=== PATIENT | female | born 1970 | race Caucasian/White ===

== ENCOUNTER 2023-09-22 15:15 | Outpatient (RCR) | payer BC, MEDICARE, SELFPAY ==
--- NOTE | 2023-09-08 17:12 | PT.OIE ---
Addendum entered and electronically signed by Esther Jaramillo, PT 09/09/23 17:29: PT direct supervision and direction to PT student. Original Note: Current Diagnoses Pain in right wrist (09/08/23) Past Medical History (Last Updated 09/07/23 @ 21:28 by Heather Johnson) Anxiety (~2016) Carpal tunnel syndrome Chicken pox Chronic back pain Depression (~2016) Fibromyalgia (~2009) Irritable bowel syndrome (~2019) Osteoarthritis (~1985) PTSD (post-traumatic stress disorder) (~2016) Rosacea (~2017) Shoulder pain (~2017) Past Surgical History (Last Updated 09/07/23 @ 21:28 by Heather Johnson) Anesthesia History of bilateral knee replacement History of hysterectomy (~2015) History of knee surgery Surgical procedure planned Visit Care Team Role Provider Type SHERRIE Baldwin Referring Provider Advanced Buffet Waiter/Waitress Specialty: Family Practice Address: [address] [place] [address], [id number] Phone: Fax: Email: [email or web address] Miranda Marques MD Attending Provider Physician Family Provider Primary Care Provider Specialty: Family Practice Obstetrics Address: [address] [place] [address], [id number] Email: [email or web address] Physical Therapy Initial Evaluation PT-OP-A Visit Information Start: 09/03/23 09:21 Freq: Status: Active Protocol: Document 09/08/23 08:23 BS (Rec: 09/08/23 12:15 BS [id number]) Out-Patient Physical Therapy Visit Information Visit Information Visit Type Initial Evaluation Visit Note 11/04 Visit Start Time 08:20 Visit Stop Time 09:08 Total Visit Minutes 48 Visit Number 1 Number of AUTOMATIC DOOR MECHANIC Visits 0 PT-OP-B Current Condition Start: 09/03/23 09:21 Freq: Status: Active Protocol: Document 09/08/23 08:23 BS (Rec: 09/08/23 12:15 BS [id number]) Current Condition History of Current Condition History of Current Condition Pt had a fall in 2018 d/t R knee locking up and she fell on knees and arms and neck went down in whiplash motion but didn't hit head on ground. Neck began hurting after, lots of pain and numbness but didn't do much for it. Did get xrays and said they found bone spurs. Can't remember if she had MRI or CT done. Recently woke up in middle of the night with RUE feeling like it had been cut off, had to get up and walk around and move neck. Had thumb spika on at the time. She has found that she has to sleep on her back bc if she sleep on sides UEs go numb. Maybe can get 45min-1.5 hour sleep in before waking up d/t sx and having to adjust. OKBE has numbness that goes to elbow and if sits for too long whole RUE will go numb. Tends to move around a lot bc if sitting for too long everything stiffens up. Pt has been to acupuncture and seems to help, responds well to estim. Sx described as N&T, burning, stabbing, in usually digits 3-5 that she can feel zing from neck but when it goes totally numb just to elbow. Has to adjust everything she does in work and day to day life d/t injury . Does have muscle relaxors but doesnt feel like they help , still wakes up as often and just wakes up more groggy. Only takes them at night. Denies any dizziness or lightheadedness. Occassionally gets headache when she feels a snap or crunch in upper cervical region. Has 2-3 falls per year d/t knees, RLE was unsuccessful bc it does not bend. Pt has B knee replacements d/t OA and repetitive hyperextension. Has newer changes in fingers of bigger joints and knuckles swelling up but when she went to see a quality control engineer was given diagnosis of fibromyalgia. Joints tend to swell depending on diet as well, carlos w/ gluten. Prior Treatments and Tests Xray after fall that showed bone spurs. Treatment Goals Patient/Caregiver Goals Wants arms to not go numb anymore. Get sleep under control. PT-OP-C Subjective Start: 09/03/23 09:21 Freq: Status: Active Protocol: Document 09/08/23 08:23 BS (Rec: 09/08/23 12:15 BS [id number]) OP-PT Pain Assessment Location B UE Intensity 8 Scale Used Numeric (0 - 10) Description Burning,Radiating,Shooting, Tightness,Tingling Frequency Constant Pain Aggravating Factors Position,ADL's,Activity, Exercise,Sitting Pain Alleviating Factors Cold,Heat,Position PT-OP-F Manual Assessment Start: 09/03/23 09:21 Freq: Status: Active Protocol: Document 09/08/23 08:23 BS (Rec: 09/08/23 12:16 BS [id number]) Manual Assessments Soft Tissue Assessment Soft Tissue Mobility Assessment significant tone noted in cerivcal paraspinals, Upper traps, & periscapular mm PT-OP-J Posture/Palpation/Skin Start: 09/03/23 09:21 Freq: Status: Active Protocol: Document 09/08/23 08:23 BS (Rec: 09/08/23 12:15 BS [id number]) Posture Evaluation Comments Posture Comments Sitting posture: R shoulder complex lower than L, kyphosis of upper thoracic spine, fwd head posture PT-OP-K Range of Motion Start: 09/03/23 09:21 Freq: Status: Active Protocol: Document 09/08/23 08:23 BS (Rec: 09/08/23 12:15 BS [id number]) Cervical Spine Range of Motion Cervical Spine Active Degrees Testing Position Sitting Flexion 42 Extension 48 Rotation Left 41 Rotation Right 34 Lateral Flexion Left 27 Lateral Flexion Right 12 Comments w/ R SB R hand goes numb, SB to L feels stretch on R but no neural sx PT-OP-L Special Tests Start: 09/03/23 09:21 Freq: Status: Active Protocol: Document 09/08/23 08:23 BS (Rec: 09/08/23 12:15 BS [id number]) Special Tests Cervical Spine Special Tests Alar ligament Stress test Test Results inconclusive Comments Tested in sitting & muscle tone of paraspinals interfered with assessment Modified Sharp-Amarilys Test Test Results inconclusive Comments Pt had hot flash symptoms come on immediately when test performed Spurlings Test Results positive Comments pain w/ ext, traction relieved PT-OP-M Strength Start: 09/03/23 09:21 Freq: Status: Active Protocol: Document 09/08/23 08:23 BS (Rec: 09/08/23 12:15 BS [id number]) Shoulder Strength Shoulder Manual Muscle Testing Right Abduction (C5) 3+ Fair+ Comments Neural sx w/ abd - limited by pain & sx Left Abduction (C5) 4+ Good+ Elbow/Forearm Strength Elbow and Forearm Manual Muscle Testing Right Flexion (C6) 4+ Good+ Extension (C7) 3+ Fair+ Comments pain & neural sx w/ elbow ext Left Flexion (C6) 4+ Good+ Extension (C7) 4+ Good+ Finger/Thumb Strength Finger Manual Muscle Testing Right Thumb Flexion (fingers C8) 5 Normal Extension (thumb C8) 4+ Good+ Adduction 4+ Good+ Abduction (fingers T1) 4+ Good+ Comments R 3rd & 4th fingers went numb w/ abduction Left Thumb Flexion (fingers C8) 5 Normal Extension (thumb C8) 4 Good Adduction 4+ Good+ Abduction (fingers T1) 4+ Good+ PT-OP-T Assessment and Plan Start: 09/03/23 09:21 Freq: Status: Active Protocol: Document 09/08/23 08:23 BS (Rec: 09/08/23 12:15 BS [id number]) Physical Therapy Assessment Rehab Potential Rehabilitation Potential Good Evaluation Complexity Number of Personal Factors/Comorbidities 3 or More Number of Body Systems Impaired 4 or More Clinical Presentation at Evaluation Unstable Impairments Impairments Activity Tolerance,Functional Activities,Functional Mobility ,Gait,Pain,Posture,ROM, Sensation,Soft Tissue Mobility ,Strength,Tone Goals Symptoms Impairment Constant numbness throughout day that comes on after just few minutes of one position Short Term Goal (STG) Pt will report dec in numbness of BUE throughout daily activities, with no more than 5/10 pain reported at worst. STG Duration 10/13/23 Kiln Drawer Goal (LTG) Pt will report no more numbness in BUE with ADLs such as getting dressed, doing hair, and cleaning in order to allow for proper participation in necessary daily tasks without limitation d/t symptoms & pain. LTG Duration 11/17/23 Sleep Impairment Pt wakes up every 45min d/t numbness and tingling through BUE every night which she has to get up or move around to get it to dec before faling back asleep. Short Term Goal (STG) Pt will report bouts of sleep >2hr throughout night in order to show dec in symtom severity & frequency throughout night. STG Duration 10/13/23 Penitentiary Goal (LTG) Pt will report no sleep distruptions during night d/t BUE symptoms in order to allow for better quality sleep & to show improvement in overall symptom frequency and severity . LTG Duration 11/17/23 ROM Impairment significant limitation in all cervical ROM Short Term Goal (STG) Pt will inc B cervical rotation to > 45 degrees w/o inc in symptoms in order to progress towards functional ROM w/o pain or N&T. STG Duration 10/13/23 Kiln Drawer Goal (LTG) Pt will inc cervical ROM w/o inc in pain or numbness throughout neck and BUE in order to allow for functional mobility during ADLs and work without limitation d/t symptoms. LTG Duration 11/17/23 Assessment Summary Assessment Pt reports to PT eval today c/ o neck pain & BUE numbness & tingling following a fall in 2018. Pt feel numbness and tingling from neck, through medial arm and into digits 3-5 . Pt had xrays taken after fall and found bone spurs in cervical spine but no other significant findings, pt does not remember if she has had MRI or CT done. Pt denied any dizziness/lightheadedness but states she has about 3 falls a year which she states is d/t her R knee locking out. She has B knee replacements but the R knee never healed properly and has flexion ROM deficits following significant PTSD from surgery. Pt has also been told she may need a hip replacement and was given diagnosis of fibromyalgia by rhematologist following appointment to discuss joint pain throughout body. During exam, pt was noted to have significantly dec cervical ROM , with her R hand going numb during R SB, and B rot was limited to <45 deg indicating upper cervical involvement. During myotome testing, pt was found to be limited by pain & neural symptoms with shld abd , elbow ext, & finger abd on RUE. Following strength testing pt had discomfort through lateral arm & deltoid region. Pt had cervical pain w / spurlings and it was relieved with cervical traction. Pt had inconclusive results with alar ligament testing in sitting d/t muscle tone, but when testing perofrming modified sharp- amarilys pt had sudden onset of hot flash symtoms and began sweating through UE. Although these symtoms are not a true positive they do raise concern and indicate potential transverse ligament involvment . Overall, pt presents with multiple symptoms that indicate potential systemic involvement as well as potential upper cervical involevement that requires further screening and assessment. Pt will benefit from skilled PT in order to further assess symptoms and to address functional deficits with ROM and strength to improve ability to participate necessary daily activities. If further red flags are found with continued assessment, pt may require further imaging/ testing before she is appropriate for PT. Physical Therapy Plan Frequency and Duration Frequency of Treatment 1-2x/wk Duration of treatment (weeks) 10 Plan of Care Start Date 09/08/23 Plan of Care End Date 11/17/23 Therapeutic Interventions Therapeutic Interventions Balance Training,Coordination Training,Gait Training,Home Exercise Program,Joint Mobilizations,Manual Therapy, Neuromuscular Re-education, Patient/Caregiver Education, Self-Care/Home Management,Soft Tissue Mobilization,Taping, Therapeutic Activities, Therapeutic Exercises Modalities Cold Pack/Ice Massage,Electric Stimulation,Hot Packs, Infrared Therapy,Traction- Mechanical,Ultrasound Next Visit Focus/Plan Next Note Type Treatment Note Next Visit Plan Arterial screen & upper cervical ligament screen. Assess reflexes. Hold on upper cervical manual until further screening completed to determine appropriateness. Assess sleeping position on sides. Manual assessment ST junction, cervical vert, soft tissue STM. Introduce gentle stretching for UT, scalenes, levator scap. gentle strengthening for periscapular mm UE NTT & glides, traction to alleviate
--- NOTE | 2023-09-10 17:51 | PT.OTN ---
Addendum entered and electronically signed by Esther Jaramillo, PT 09/10/23 18:08: PT direct supervision and direction to PT student. Original Note: Current Diagnoses Pain in right wrist (09/10/23) Physical Therapy Treatment Note PT-OP-A Visit Information Start: 09/03/23 09:21 Freq: Status: Active Protocol: Document 09/10/23 07:32 BS (Rec: 09/10/23 09:15 BS [id number]) Out-Patient Physical Therapy Visit Information Visit Information Visit Type Treatment Note Visit Note 12/05 Visit Start Time 07:34 Visit Stop Time 08:16 Total Visit Minutes 42 Visit Number 2 Number of BRIM ROUNDER Visits 0 PT-OP-B Current Condition Start: 09/03/23 09:21 Freq: Status: Active Protocol: Document 09/08/23 08:23 BS (Rec: 09/08/23 12:15 BS [id number]) Current Condition History of Current Condition History of Current Condition Pt had a fall in 2018 d/t R knee locking up and she fell on knees and arms and neck went down in whiplash motion but didn't hit head on ground. Neck began hurting after, lots of pain and numbness but didn't do much for it. Did get xrays and said they found bone spurs. Can't remember if she had MRI or CT done. Recently woke up in middle of the night with RUE feeling like it had been cut off, had to get up and walk around and move neck. Had thumb spika on at the time. She has found that she has to sleep on her back bc if she sleep on sides UEs go numb. Maybe can get 45min-1.5 hour sleep in before waking up d/t sx and having to adjust. LUE has numbness that goes to elbow and if sits for too long whole RUE will go numb. Tends to move around a lot bc if sitting for too long everything stiffens up. Pt has been to acupuncture and seems to help, responds well to estim. Sx described as N&T, burning, stabbing, in usually digits 3-5 that she can feel zing from neck but when it goes totally numb just to elbow. Has to adjust everything she does in work and day to day life d/t injury . Does have muscle relaxors but doesnt feel like they help , still wakes up as often and just wakes up more groggy. Only takes them at night. Denies any dizziness or lightheadedness. Occassionally gets headache when she feels a snap or crunch in upper cervical region. Has 2-3 falls per year d/t knees, RLE was unsuccessful bc it does not bend. Pt has B knee replacements d/t OA and repetitive hyperextension. Has newer changes in fingers of bigger joints and knuckles swelling up but when she went to see a health insurance specialist was given diagnosis of fibromyalgia. Joints tend to swell depending on diet as well, carlos w/ gluten. Prior Treatments and Tests Xray after fall that showed bone spurs. Treatment Goals Patient/Caregiver Goals Wants arms to not go numb anymore. Get sleep under control. PT-OP-C Subjective Start: 09/03/23 09:21 Freq: Status: Active Protocol: Document 09/10/23 07:32 BS (Rec: 09/10/23 09:15 BS [id number]) OP-PT Subjective Patient Comments Patient Comments When patient went to bed thursday night, thursday was first morning that tingling had been diminished. This morning noticed whole hand was numb but it was a more mild tingling compared to normal daggers she feels. Saw her microsoft bi architect same day as lelia and he worked her over but felt like he opened up some channels in her body. PT-OP-F Manual Assessment Start: 09/03/23 09:21 Freq: Status: Active Protocol: Document 09/08/23 08:23 BS (Rec: 09/08/23 12:16 BS [id number]) Manual Assessments Soft Tissue Assessment Soft Tissue Mobility Assessment significant tone noted in cerivcal paraspinals, Upper traps, & periscapular mm PT-OP-J Posture/Palpation/Skin Start: 09/03/23 09:21 Freq: Status: Active Protocol: Document 09/08/23 08:23 BS (Rec: 09/08/23 12:15 BS [id number]) Posture Evaluation Comments Posture Comments Sitting posture: R shoulder complex lower than L, kyphosis of upper thoracic spine, fwd head posture PT-OP-K Range of Motion Start: 09/03/23 09:21 Freq: Status: Active Protocol: Document 09/08/23 08:23 BS (Rec: 09/08/23 12:15 BS [id number]) Cervical Spine Range of Motion Cervical Spine Active Degrees Testing Position Sitting Flexion 42 Extension 48 Rotation Left 41 Rotation Right 34 Lateral Flexion Left 27 Lateral Flexion Right 12 Comments w/ R SB R hand goes numb, SB to L feels stretch on R but no neural sx PT-OP-L Special Tests Start: 09/03/23 09:21 Freq: Status: Active Protocol: Document 09/10/23 07:32 [facility] (Rec: 09/10/23 08:33 [facility] [id number]) Special Tests Cervical Spine Special Tests arterial screen Comments VBI position screening, BP 124 /74, carotid and 4 pt heart ausciltation Transverse Ligament Test Results neg Comments cranial atlas lift, atlas axis shear tectoral membrane Test Results neg Alar ligament Stress test Test Results supine testing neg PT-OP-M Strength Start: 09/03/23 09:21 Freq: Status: Active Protocol: Document 09/08/23 08:23 BS (Rec: 09/08/23 12:15 [id number]) Shoulder Strength Shoulder Manual Muscle Testing Right Abduction (C5) 3+ Fair+ Comments Neural sx w/ abd - limited by pain & sx Left Abduction (C5) 4+ Good+ Elbow/Forearm Strength Elbow and Forearm Manual Muscle Testing Right Flexion (C6) 4+ Good+ Extension (C7) 3+ Fair+ Comments pain & neural sx w/ elbow ext Left Flexion (C6) 4+ Good+ Extension (C7) 4+ Good+ Finger/Thumb Strength Finger Manual Muscle Testing Right Thumb Flexion (fingers C8) 5 Normal Extension (thumb C8) 4+ Good+ Adduction 4+ Good+ Abduction (fingers T1) 4+ Good+ Comments R 3rd & 4th fingers went numb w/ abduction Left Thumb Flexion (fingers C8) 5 Normal Extension (thumb C8) 4 Good Adduction 4+ Good+ Abduction (fingers T1) 4+ Good+ PT-OP-Q Treatments Start: 09/03/23 09:21 Freq: Status: Active Protocol: Document 09/10/23 07:32 BS (Rec: 09/10/23 09:15 BS [id number]) Manual Therapy Treatment Soft Tissue Mobilization Cranial Mobilization Type Sustained Pressure Comments B SO STM Neck Mobilization Type Rolling,Strumming,Sustained Pressure Intensity/Depth Deep Body Position Hooklying Comments B SCM, Scalenes, UT STM PT-OP-T Assessment and Plan Start: 09/03/23 09:21 Freq: Status: Active Protocol: Document 09/10/23 07:32 BS (Rec: 09/10/23 09:15 BS [id number]) Physical Therapy Assessment Goals Symptoms Impairment Constant numbness throughout day that comes on after just few minutes of one position Short Term Goal (STG) Pt will report dec in numbness of BUE throughout daily activities, with no more than 5/10 pain reported at worst. STG Duration 10/13/23 Assisted Goal (LTG) Pt will report no more numbness in BUE with ADLs such as getting dressed, doing hair, and cleaning in order to allow for proper participation in necessary daily tasks without limitation d/t symptoms & pain. LTG Duration 11/17/23 Sleep Impairment Pt wakes up every 45min d/t numbness and tingling through BUE every night which she has to get up or move around to get it to dec before faling back asleep. Short Term Goal (STG) Pt will report bouts of sleep >2hr throughout night in order to show dec in symtom severity & frequency throughout night. STG Duration 10/13/23 Windows Consultant Goal (LTG) Pt will report no sleep distruptions during night d/t BUE symptoms in order to allow for better quality sleep & to show improvement in overall symptom frequency and severity . LTG Duration 11/17/23 ROM Impairment significant limitation in all cervical ROM Short Term Goal (STG) Pt will inc B cervical rotation to > 45 degrees w/o inc in symptoms in order to progress towards functional ROM w/o pain or N&T. STG Duration 10/13/23 Windows Consultant Goal (LTG) Pt will inc cervical ROM w/o inc in pain or numbness throughout neck and BUE in order to allow for functional mobility during ADLs and work without limitation d/t symptoms. LTG Duration 11/17/23 Assessment Summary Assessment arterial and upper cervical ligamentous testing completed with no significant findings, will continue to monitor for adverse reactions/symptoms throughout future sessions. BP : 124/77. Pt presesnted today with significant muscle guarding throughout neck and session was focused on releasing tension in order to access deeper structures in future session. Pt SCM and scalenes had most significant tension but responded well to manual. Physical Therapy Plan Frequency and Duration Frequency of Treatment 1-2x/wk Duration of treatment (weeks) 10 Plan of Care Start Date 09/08/23 Plan of Care End Date 11/17/23 Next Visit Focus/Plan Next Note Type Treatment Note Next Visit Plan Assess reflexes. Assess sleeping position on sides. Manual assessment ST junction, ribs, cervical vert, soft tissue STM. Introduce gentle stretching for UT, scalenes, levator scap. gentle strengthening for periscapular mm UE NTT & glides, traction to alleviate
--- NOTE | 2023-09-15 14:50 | PT.OTN ---
Addendum entered and electronically signed by Esther Jaramillo, PT 09/16/23 11:00: PT direct supervision and direction to PT student. Original Note: Current Diagnoses Pain in right wrist (09/15/23) Physical Therapy Treatment Note PT-OP-A Visit Information Start: 09/03/23 09:21 Freq: Status: Active Protocol: Document 09/15/23 12:40 BS (Rec: 09/15/23 12:59 BS [id number]) Out-Patient Physical Therapy Visit Information Visit Information Visit Type Treatment Note Visit Note 01/02 Visit Start Time 07:34 Visit Stop Time 08:15 Total Visit Minutes 41 Visit Number 3 Number of BUILD ENGINEER Visits 0 PT-OP-B Current Condition Start: 09/03/23 09:21 Freq: Status: Active Protocol: Document 09/08/23 08:23 BS (Rec: 09/08/23 12:15 BS [id number]) Current Condition History of Current Condition History of Current Condition Pt had a fall in 2018 d/t R knee locking up and she fell on knees and arms and neck went down in whiplash motion but didn't hit head on ground. Neck began hurting after, lots of pain and numbness but didn't do much for it. Did get xrays and said they found bone spurs. Can't remember if she had MRI or CT done. Recently woke up in middle of the night with RUE feeling like it had been cut off, had to get up and walk around and move neck. Had thumb spika on at the time. She has found that she has to sleep on her back bc if she sleep on sides UEs go numb. Maybe can get 45min-1.5 hour sleep in before waking up d/t sx and having to adjust. LUE has numbness that goes to elbow and if sits for too long whole RUE will go numb. Tends to move around a lot bc if sitting for too long everything stiffens up. Pt has been to acupuncture and seems to help, responds well to estim. Sx described as N&T, burning, stabbing, in usually digits 3-5 that she can feel zing from neck but when it goes totally numb just to elbow. Has to adjust everything she does in work and day to day life d/t injury . Does have muscle relaxors but doesnt feel like they help , still wakes up as often and just wakes up more groggy. Only takes them at night. Denies any dizziness or lightheadedness. Occassionally gets headache when she feels a snap or crunch in upper cervical region. Has 2-3 falls per year d/t knees, RLE was unsuccessful bc it does not bend. Pt has B knee replacements d/t OA and repetitive hyperextension. Has newer changes in fingers of bigger joints and knuckles swelling up but when she went to see a core composer feeder was given diagnosis of fibromyalgia. Joints tend to swell depending on diet as well, carlos w/ gluten. Prior Treatments and Tests Xray after fall that showed bone spurs. Treatment Goals Patient/Caregiver Goals Wants arms to not go numb anymore. Get sleep under control. PT-OP-C Subjective Start: 09/03/23 09:21 Freq: Status: Active Protocol: Document 09/15/23 12:40 BS (Rec: 09/15/23 12:59 BS [id number]) OP-PT Subjective Patient Comments Patient Comments Pt reported inc in small cracking like rice crispies in upper cervical spine since last visit that she has noticed since last visit. 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 PT-OP-F Manual Assessment Start: 09/03/23 09:21 Freq: Status: Active Protocol: Document 09/08/23 08:23 BS (Rec: 09/08/23 12:16 BS [id number]) Manual Assessments Soft Tissue Assessment Soft Tissue Mobility Assessment significant tone noted in cerivcal paraspinals, Upper traps, & periscapular mm PT-OP-J Posture/Palpation/Skin Start: 09/03/23 09:21 Freq: Status: Active Protocol: Document 09/08/23 08:23 BS (Rec: 09/08/23 12:15 BS [id number]) Posture Evaluation Comments Posture Comments Sitting posture: R shoulder complex lower than L, kyphosis of upper thoracic spine, fwd head posture PT-OP-K Range of Motion Start: 09/03/23 09:21 Freq: Status: Active Protocol: Document 09/08/23 08:23 BS (Rec: 09/08/23 12:15 BS [id number]) Cervical Spine Range of Motion Cervical Spine Active Degrees Testing Position Sitting Flexion 42 Extension 48 Rotation Left 41 Rotation Right 34 Lateral Flexion Left 27 Lateral Flexion Right 12 Comments w/ R SB R hand goes numb, SB to L feels stretch on R but no neural sx PT-OP-L Special Tests Start: 09/03/23 09:21 Freq: Status: Active Protocol: Document 09/10/23 07:32 [facility] (Rec: 09/10/23 08:33 [facility] [id number]) Special Tests Cervical Spine Special Tests arterial screen Comments VBI position screening, BP 124 /74, carotid and 4 pt heart ausciltation Transverse Ligament Test Results neg Comments cranial atlas lift, atlas axis shear tectoral membrane Test Results neg Alar ligament Stress test Test Results supine testing neg PT-OP-M Strength Start: 09/03/23 09:21 Freq: Status: Active Protocol: Document 09/08/23 08:23 BS (Rec: 09/08/23 12:15 BS [id number]) Shoulder Strength Shoulder Manual Muscle Testing Right Abduction (C5) 3+ Fair+ Comments Neural sx w/ abd - limited by pain & sx Left Abduction (C5) 4+ Good+ Elbow/Forearm Strength Elbow and Forearm Manual Muscle Testing Right Flexion (C6) 4+ Good+ Extension (C7) 3+ Fair+ Comments pain & neural sx w/ elbow ext Left Flexion (C6) 4+ Good+ Extension (C7) 4+ Good+ Finger/Thumb Strength Finger Manual Muscle Testing Right Thumb Flexion (fingers C8) 5 Normal Extension (thumb C8) 4+ Good+ Adduction 4+ Good+ Abduction (fingers T1) 4+ Good+ Comments R 3rd & 4th fingers went numb w/ abduction Left Thumb Flexion (fingers C8) 5 Normal Extension (thumb C8) 4 Good Adduction 4+ Good+ Abduction (fingers T1) 4+ Good+ PT-OP-Q Treatments Start: 09/03/23 09:21 Freq: Status: Active Protocol: Document 09/15/23 12:40 BS (Rec: 09/15/23 12:59 BS [id number]) Therapeutic Exercises Sitting Exercises scap setting Side bilateral Reps/Minutes x6 Comments cues to move up, back, and down Chin tucks Side bilateral Reps/Minutes x10 Comments cues for small movement and looking straight ahead Standing Exercises Rows Standing Exercise Name standing row Resistance green band Reps/Minutes x10 Comments cues for scap set first and slow controlled mvmt. Manual Therapy Treatment Soft Tissue Mobilization Cranial Mobilization Type Sustained Pressure Comments B SO STM Neck Mobilization Type Rolling,Strumming,Sustained Pressure Intensity/Depth Deep Comments B LEWIS Maldonado STM Joint Mobilizations ribs Comments 1. L 1st rib inf FM supine 2. L 2nd rib inf FM sidelying PT-OP-T Assessment and Plan Start: 09/03/23 09:21 Freq: Status: Active Protocol: Document 09/15/23 12:40 BS (Rec: 09/15/23 12:59 BS [id number]) Physical Therapy Assessment Goals Symptoms Impairment Constant numbness throughout day that comes on after just few minutes of one position Short Term Goal (STG) Pt will report dec in numbness of BUE throughout daily activities, with no more than 5/10 pain reported at worst. STG Duration 10/13/23 Language Interpreter Goal (LTG) Pt will report no more numbness in BUE with ADLs such as getting dressed, doing hair, and cleaning in order to allow for proper participation in necessary daily tasks without limitation d/t symptoms & pain. LTG Duration 11/17/23 Sleep Impairment Pt wakes up every 45min d/t numbness and tingling through BUE every night which she has to get up or move around to get it to dec before faling back asleep. Short Term Goal (STG) Pt will report bouts of sleep >2hr throughout night in order to show dec in symtom severity & frequency throughout night. STG Duration 10/13/23 Language Interpreter Goal (LTG) Pt will report no sleep distruptions during night d/t BUE symptoms in order to allow for better quality sleep & to show improvement in overall symptom frequency and severity . LTG Duration 11/17/23 ROM Impairment significant limitation in all cervical ROM Short Term Goal (STG) Pt will inc B cervical rotation to > 45 degrees w/o inc in symptoms in order to progress towards functional ROM w/o pain or N&T. STG Duration 10/13/23 Mcfp Goal (LTG) Pt will inc cervical ROM w/o inc in pain or numbness throughout neck and BUE in order to allow for functional mobility during ADLs and work without limitation d/t symptoms. LTG Duration 11/17/23 Assessment Summary Assessment Pt came in today with reports of inc crepitus in upper cervical region since last visit. Pt given HEP including chin tucks, scap setting, and banded rows. Pt required mod cueing for all but was able to maintain good form after. Pt L rib was elevated at start of treatment, Improved some with manual but still slightly elevated by end of session. Physical Therapy Plan Frequency and Duration Frequency of Treatment 1-2x/wk Duration of treatment (weeks) 10 Plan of Care Start Date 09/08/23 Plan of Care End Date 11/17/23 Next Visit Focus/Plan Next Note Type Treatment Note Next Visit Plan Assess reflexes. Assess sleeping position on sides. Manual assessment ST junction, ribs, cervical vert, soft tissue STM. Introduce gentle stretching for UT, scalenes, levator scap. gentle strengthening for periscapular mm UE NTT & glides, traction to alleviate
--- NOTE | 2023-09-22 18:12 | PT.OTN ---
Addendum entered and electronically signed by Esther Jaramillo, PT 09/23/23 09:02: PT direct supervision and direction to PT student. Original Note: Current Diagnoses Pain in right wrist (09/22/23) Physical Therapy Treatment Note PT-OP-A Visit Information Start: 09/03/23 09:21 Freq: Status: Active Protocol: Document 09/22/23 15:17 BS (Rec: 09/22/23 17:55 BS [id number]) Out-Patient Physical Therapy Visit Information Visit Information Visit Type Treatment Note Visit Note 02/02 Visit Start Time 15:18 Visit Stop Time 16:00 Total Visit Minutes 42 Visit Number 4 Number of MANAGEMENT ASSOCIATE Visits 0 PT-OP-B Current Condition Start: 09/03/23 09:21 Freq: Status: Active Protocol: Document 09/08/23 08:23 BS (Rec: 09/08/23 12:15 BS [id number]) Current Condition History of Current Condition History of Current Condition Pt had a fall in 2018 d/t R knee locking up and she fell on knees and arms and neck went down in whiplash motion but didn't hit head on ground. Neck began hurting after, lots of pain and numbness but didn't do much for it. Did get xrays and said they found bone spurs. Can't remember if she had MRI or CT done. Recently woke up in middle of the night with RUE feeling like it had been cut off, had to get up and walk around and move neck. Had thumb spika on at the time. She has found that she has to sleep on her back bc if she sleep on sides UEs go numb. Maybe can get 45min-1.5 hour sleep in before waking up d/t sx and having to adjust. LUE has numbness that goes to elbow and if sits for too long whole RUE will go numb. Tends to move around a lot bc if sitting for too long everything stiffens up. Pt has been to acupuncture and seems to help, responds well to estim. Sx described as N&T, burning, stabbing, in usually digits 3-5 that she can feel zing from neck but when it goes totally numb just to elbow. Has to adjust everything she does in work and day to day life d/t injury . Does have muscle relaxors but doesnt feel like they help , still wakes up as often and just wakes up more groggy. Only takes them at night. Denies any dizziness or lightheadedness. Occassionally gets headache when she feels a snap or crunch in upper cervical region. Has 2-3 falls per year d/t knees, RLE was unsuccessful bc it does not bend. Pt has B knee replacements d/t OA and repetitive hyperextension. Has newer changes in fingers of bigger joints and knuckles swelling up but when she went to see a reservation clerk was given diagnosis of fibromyalgia. Joints tend to swell depending on diet as well, carlos w/ gluten. Prior Treatments and Tests Xray after fall that showed bone spurs. Treatment Goals Patient/Caregiver Goals Wants arms to not go numb anymore. Get sleep under control. PT-OP-C Subjective Start: 09/03/23 09:21 Freq: Status: Active Protocol: Document 09/22/23 15:17 BS (Rec: 09/22/23 17:55 BS [id number]) OP-PT Subjective Patient Comments Patient Comments feels super stiff all over neck and shoulders. Still going to acupuncture and feels like she does get relief from it. Reports she can finally sleep on her stomach and has been waking up less during the night PT-OP-F Manual Assessment Start: 09/03/23 09:21 Freq: Status: Active Protocol: Document 09/08/23 08:23 BS (Rec: 09/08/23 12:16 BS [id number]) Manual Assessments Soft Tissue Assessment Soft Tissue Mobility Assessment significant tone noted in cerivcal paraspinals, Upper traps, & periscapular mm PT-OP-J Posture/Palpation/Skin Start: 09/03/23 09:21 Freq: Status: Active Protocol: Document 09/08/23 08:23 BS (Rec: 09/08/23 12:15 BS [id number]) Posture Evaluation Comments Posture Comments Sitting posture: R shoulder complex lower than L, kyphosis of upper thoracic spine, fwd head posture PT-OP-K Range of Motion Start: 09/03/23 09:21 Freq: Status: Active Protocol: Document 09/08/23 08:23 BS (Rec: 09/08/23 12:15 BS [id number]) Cervical Spine Range of Motion Cervical Spine Active Degrees Testing Position Sitting Flexion 42 Extension 48 Rotation Left 41 Rotation Right 34 Lateral Flexion Left 27 Lateral Flexion Right 12 Comments w/ R SB R hand goes numb, SB to L feels stretch on R but no neural sx PT-OP-L Special Tests Start: 09/03/23 09:21 Freq: Status: Active Protocol: Document 09/10/23 07:32 [facility] (Rec: 09/10/23 08:33 [facility] [id number]) Special Tests Cervical Spine Special Tests arterial screen Comments VBI position screening, BP 124 /74, carotid and 4 pt heart ausciltation Transverse Ligament Test Results neg Comments cranial atlas lift, atlas axis shear tectoral membrane Test Results neg Alar ligament Stress test Test Results supine testing neg PT-OP-M Strength Start: 09/03/23 09:21 Freq: Status: Active Protocol: Document 09/08/23 08:23 BS (Rec: 09/08/23 12:15 BS [id number]) Shoulder Strength Shoulder Manual Muscle Testing Right Abduction (C5) 3+ Fair+ Comments Neural sx w/ abd - limited by pain & sx Left Abduction (C5) 4+ Good+ Elbow/Forearm Strength Elbow and Forearm Manual Muscle Testing Right Flexion (C6) 4+ Good+ Extension (C7) 3+ Fair+ Comments pain & neural sx w/ elbow ext Left Flexion (C6) 4+ Good+ Extension (C7) 4+ Good+ Finger/Thumb Strength Finger Manual Muscle Testing Right Thumb Flexion (fingers C8) 5 Normal Extension (thumb C8) 4+ Good+ Adduction 4+ Good+ Abduction (fingers T1) 4+ Good+ Comments R 3rd & 4th fingers went numb w/ abduction Left Thumb Flexion (fingers C8) 5 Normal Extension (thumb C8) 4 Good Adduction 4+ Good+ Abduction (fingers T1) 4+ Good+ PT-OP-Q Treatments Start: 09/03/23 09:21 Freq: Status: Active Protocol: Document 09/22/23 15:17 BS (Rec: 09/22/23 17:55 BS [id number]) Therapeutic Exercises Prone Exercises IYT Prone Exercise Name Inverted Ys and Ts Side bilateral Reps/Minutes x5 ea Comments got numbness after few reps, discontinued Manual Therapy Treatment Soft Tissue Mobilization Cranial Mobilization Type Sustained Pressure Comments B SO STM Neck Mobilization Type Rolling,Strumming,Sustained Pressure Intensity/Depth Deep Comments B Scalenes, UT, & SCM STM Joint Mobilizations ST Comments 1. R ST joint assessment 2. R post depression FM cervical Comments 1. C1 L glide FM 2. C2 L glide FM PT-OP-T Assessment and Plan Start: 09/03/23 09:21 Freq: Status: Active Protocol: Document 09/22/23 15:17 BS (Rec: 09/22/23 17:55 BS [id number]) Physical Therapy Assessment Goals Symptoms Impairment Constant numbness throughout day that comes on after just few minutes of one position Short Term Goal (STG) Pt will report dec in numbness of BUE throughout daily activities, with no more than 5/10 pain reported at worst. STG Duration 10/13/23 Information Security Director Goal (LTG) Pt will report no more numbness in BUE with ADLs such as getting dressed, doing hair, and cleaning in order to allow for proper participation in necessary daily tasks without limitation d/t symptoms & pain. LTG Duration 11/17/23 Sleep Impairment Pt wakes up every 45min d/t numbness and tingling through BUE every night which she has to get up or move around to get it to dec before faling back asleep. Short Term Goal (STG) Pt will report bouts of sleep >2hr throughout night in order to show dec in symtom severity & frequency throughout night. STG Duration 10/13/23 Information Security Director Goal (LTG) Pt will report no sleep distruptions during night d/t BUE symptoms in order to allow for better quality sleep & to show improvement in overall symptom frequency and severity . LTG Duration 11/17/23 ROM Impairment significant limitation in all cervical ROM Short Term Goal (STG) Pt will inc B cervical rotation to > 45 degrees w/o inc in symptoms in order to progress towards functional ROM w/o pain or N&T. STG Duration 10/13/23 Assisted Goal (LTG) Pt will inc cervical ROM w/o inc in pain or numbness throughout neck and BUE in order to allow for functional mobility during ADLs and work without limitation d/t symptoms. LTG Duration 11/17/23 Assessment Summary Assessment Pt came in reporting dec in sleep disturbances lately but still feeling significant tension throughout neck and upper thoracic area. Pt had inc tension through B SCM today L>R, and UT R>L. Muscle tension dec post manual. Pt had hard time w/ motor control of scap during prone extercises and got numbness down BUE within a few reps of each. Pt reports that she usually always goes numb when lying on belly. ST joint assessed and no mobility movement were sig limited. post dep limited some but mostly d/t muscle tension. Physical Therapy Plan Frequency and Duration Frequency of Treatment 1-2x/wk Duration of treatment (weeks) 10 Plan of Care Start Date 09/08/23 Plan of Care End Date 11/17/23 Next Visit Focus/Plan Next Note Type Treatment Note Next Visit Plan Check in about use of TENS unit at home. Assess sleeping position on sides. Manual assessment ST junction, ribs, cervical vert, soft tissue STM. Introduce gentle stretching for UT, scalenes, levator scap. gentle strengthening for periscapular mm UE NTT & glides, traction to alleviate
--- NOTE | 2023-12-08 17:51 | PT.OPDS ---
Current Diagnoses Pain in right wrist (09/22/23) Visit Care Team Role Provider Type SHERRIE Baldwin Referring Provider Advanced Camp Manager Specialty: Family Practice Address: [address] [facility], [facility], [address] Phone: Fax: Email: [email or web address] Attending Provider Physician Family Provider Primary Care Provider Specialty: Family Practice Obstetrics Address: [address] [place], [address] Email: [email or web address] Visit Number Visit Number 4 Discharge Summary PT-OP-B Current Condition Start: 09/03/23 09:21 Freq: Status: Active Protocol: Document 09/08/23 08:23 BS (Rec: 09/08/23 12:15 BS [id number]) Current Condition History of Current Condition History of Current Condition Pt had a fall in 2018 d/t R knee locking up and she fell on knees and arms and neck went down in whiplash motion but didn't hit head on ground. Neck began hurting after, lots of pain and numbness but didn't do much for it. Did get xrays and said they found bone spurs. Can't remember if she had MRI or CT done. Recently woke up in middle of the night with RUE feeling like it had been cut off, had to get up and walk around and move neck. Had thumb spika on at the time. She has found that she has to sleep on her back bc if she sleep on sides UEs go numb. Maybe can get 45min-1.5 hour sleep in before waking up d/t sx and having to adjust. LUE has numbness that goes to elbow and if sits for too long whole RUE will go numb. Tends to move around a lot bc if sitting for too long everything stiffens up. Pt has been to acupuncture and seems to help, responds well to estim. Sx described as N&T, burning, stabbing, in usually digits 3-5 that she can feel zing from neck but when it goes totally numb just to elbow. Has to adjust everything she does in work and day to day life d/t injury . Does have muscle relaxors but doesnt feel like they help , still wakes up as often and just wakes up more groggy. Only takes them at night. Denies any dizziness or lightheadedness. Occassionally gets headache when she feels a snap or crunch in upper cervical region. Has 2-3 falls per year d/t knees, RLE was unsuccessful bc it does not bend. Pt has B knee replacements d/t OA and repetitive hyperextension. Has newer changes in fingers of bigger joints and knuckles swelling up but when she went to see a wood room supervisor was given diagnosis of fibromyalgia. Joints tend to swell depending on diet as well, carlos w/ gluten. Prior Treatments and Tests Xray after fall that showed bone spurs. Treatment Goals Patient/Caregiver Goals Wants arms to not go numb anymore. Get sleep under control. PT-OP-C Subjective Start: 09/03/23 09:21 Freq: Status: Active Protocol: Document 09/22/23 15:17 BS (Rec: 09/22/23 17:55 BS [id number]) OP-PT Subjective Patient Comments Patient Comments feels super stiff all over neck and shoulders. Still going to acupuncture and feels like she does get relief from it. Reports she can finally sleep on her stomach and has been waking up less during the night PT-OP-F Manual Assessment Start: 09/03/23 09:21 Freq: Status: Active Protocol: Document 09/08/23 08:23 BS (Rec: 09/08/23 12:16 BS [id number]) Manual Assessments Soft Tissue Assessment Soft Tissue Mobility Assessment significant tone noted in cerivcal paraspinals, Upper traps, & periscapular mm PT-OP-J Posture/Palpation/Skin Start: 09/03/23 09:21 Freq: Status: Active Protocol: Document 09/08/23 08:23 BS (Rec: 09/08/23 12:15 BS [id number]) Posture Evaluation Comments Posture Comments Sitting posture: R shoulder complex lower than L, kyphosis of upper thoracic spine, fwd head posture PT-OP-K Range of Motion Start: 09/03/23 09:21 Freq: Status: Active Protocol: Document 09/08/23 08:23 BS (Rec: 09/08/23 12:15 BS [id number]) Cervical Spine Range of Motion Cervical Spine Active Degrees Testing Position Sitting Flexion 42 Extension 48 Rotation Left 41 Rotation Right 34 Lateral Flexion Left 27 Lateral Flexion Right 12 Comments w/ R SB R hand goes numb, SB to L feels stretch on R but no neural sx PT-OP-L Special Tests Start: 09/03/23 09:21 Freq: Status: Active Protocol: Document 09/10/23 07:32 [facility] (Rec: 09/10/23 08:33 [facility] [id number]) Special Tests Cervical Spine Special Tests arterial screen Comments VBI position screening, BP 124 /74, carotid and 4 pt heart ausciltation Transverse Ligament Test Results neg Comments cranial atlas lift, atlas axis shear tectoral membrane Test Results neg Alar ligament Stress test Test Results supine testing neg PT-OP-M Strength Start: 09/03/23 09:21 Freq: Status: Active Protocol: Document 09/08/23 08:23 BS (Rec: 09/08/23 12:15 BS [id number]) Shoulder Strength Shoulder Manual Muscle Testing Right Abduction (C5) 3+ Fair+ Comments Neural sx w/ abd - limited by pain & sx Left Abduction (C5) 4+ Good+ Elbow/Forearm Strength Elbow and Forearm Manual Muscle Testing Right Flexion (C6) 4+ Good+ Extension (C7) 3+ Fair+ Comments pain & neural sx w/ elbow ext Left Flexion (C6) 4+ Good+ Extension (C7) 4+ Good+ Finger/Thumb Strength Finger Manual Muscle Testing Right Thumb Flexion (fingers C8) 5 Normal Extension (thumb C8) 4+ Good+ Adduction 4+ Good+ Abduction (fingers T1) 4+ Good+ Comments R 3rd & 4th fingers went numb w/ abduction Left Thumb Flexion (fingers C8) 5 Normal Extension (thumb C8) 4 Good Adduction 4+ Good+ Abduction (fingers T1) 4+ Good+ PT-OP-T Assessment and Plan Start: 09/03/23 09:21 Freq: Status: Active Protocol: Document 12/08/23 17:50 [facility] (Rec: 12/08/23 17:51 [facility] [id number]) Physical Therapy Assessment Goals Symptoms Impairment Constant numbness throughout day that comes on after just few minutes of one position Short Term Goal (STG) Pt will report dec in numbness of BUE throughout daily activities, with no more than 5/10 pain reported at worst. STG Duration 10/13/23 Vehicle Body Builder Goal (LTG) Pt will report no more numbness in BUE with ADLs such as getting dressed, doing hair, and cleaning in order to allow for proper participation in necessary daily tasks without limitation d/t symptoms & pain. LTG Duration 11/17/23 Sleep Impairment Pt wakes up every 45min d/t numbness and tingling through BUE every night which she has to get up or move around to get it to dec before faling back asleep. Short Term Goal (STG) Pt will report bouts of sleep >2hr throughout night in order to show dec in symtom severity & frequency throughout night. STG Duration 10/13/23 Intermediate Goal (LTG) Pt will report no sleep distruptions during night d/t BUE symptoms in order to allow for better quality sleep & to show improvement in overall symptom frequency and severity . LTG Duration 11/17/23 ROM Impairment significant limitation in all cervical ROM Short Term Goal (STG) Pt will inc B cervical rotation to > 45 degrees w/o inc in symptoms in order to progress towards functional ROM w/o pain or N&T. STG Duration 10/13/23 Vehicle Body Builder Goal (LTG) Pt will inc cervical ROM w/o inc in pain or numbness throughout neck and BUE in order to allow for functional mobility during ADLs and work without limitation d/t symptoms. LTG Duration 11/17/23 Assessment Summary Assessment Pt cancelled last 2 scheduled appts and did not call back re : further scheduling. Pt only seen for eval and 3 seessions. DC d/t no longer attending PT Physical Therapy Plan Discharge Physical Therapy Discharge Reasons No Longer Attending PT
== END 2023-12-16 09:58 | disposition home or self-care (01) ==
LOC: PHYS 15:15
PROVIDERS: Family Provider Student in an Organized Health Care Education/Training Program; PCP Student in an Organized Health Care Education/Training Program; Referring Provider Nurse Practitioner Family; Visit Provider Student in an Organized Health Care Education/Training Program
DX: M25.531 Pain in right wrist (principal)
CPT/HCPCS: 97110; 97140; 97163